=== PATIENT | male | born 1985 | race Caucasian/White ===

== ENCOUNTER 2016-10-07 20:03 | Observation (INO) | payer OTHER ==
[2016-10-07] MEDS ORDERED: HYDROmorphone 1 MG/ML 1 ML SYRINGE IVP STA (20:49)
[2016-10-07] MEDS ORDERED: ACETAMINOPHEN IV (For NPO) 1,000 MG in EMPTY BAG 1 BAG IVPB STA (20:49)
--- NOTE | 2016-10-07 20:49 | ED ---
Abdominal Pain HPI - General Source: patient, RN notes reviewed Mode of arrival: ambulatory Limitations: no limitations <Kiana Delacruz - Last Filed: 10/07/16 22:48> <Too Woodard - Last Filed: 10/07/16 22:50> - General Chief Complaint: Abdominal Pain Stated Complaint: fever abd pain Time Seen by Provider: 10/07/16 20:24 - History of Present Illness Initial Comments: Patient is a 31-year-old male presents emergency room for evaluation of fever and abdominal pain. Patient states had fever on and off throughout the week. Patient also states began having a sore throat. Patient states influenza is been going around his house. Patient states he has not been able to get into his primary care provider to be tested for influenza and strep throat. Patient states today after eating lunch she noticed pain in his right lower quadrant. Patient states pain has been getting more intense. Patient states he still continuing to have a fever. Patient states he nauseous but denies any vomiting. Patient also states she had a vassectomy done about a month ago. Patient has pain or burning during urination, trouble urinating or blood in urine. Patient denies headache or dizziness. Patient has ear pain. Patient is chest pain or cough. Patient denies constipation or diarrhea. Patient denies any history of abdominal surgeries. (Kiana Delacruz) - Related Data Home Medications Medication Instructions Recorded Confirmed Acetaminophen Tab [Tylenol Tab] 325 mg PO Q6H PRN 10/07/16 10/07/16 Multivitamins, Thera [Multivitamin 1 tab PO DAILY 10/07/16 10/07/16 (formulary)] Allergies Allergy/AdvReac Type Severity Reaction Status Date / Time No Known Allergies Allergy Verified 10/07/16 20:50 Review of Systems ROS Other: All systems not noted in ROS Statement are negative. <Kiana Delacruz - Last Filed: 10/07/16 22:48> ROS Other: All systems not noted in ROS Statement are negative. <Too Woodard - Last Filed: 10/07/16 22:50> ROS Statement: Those systems with pertinent positive or pertinent negative responses have been documented in the HPI. Past Medical History Past Medical History: No Reported History History of Any Multi-Drug Resistant Organisms: None Reported Additional Past Surgical History / Comment(s): Vasectomy 08/2016 Past Psychological History: No Psychological Hx Reported Smoking Status: Never smoker Past Alcohol Use History: None Reported Past Drug Use History: None Reported <Kiana Delacruz - Last Filed: 10/07/16 22:48> General Exam Limitations: no limitations General appearance: alert, in no apparent distress Head exam: Present: atraumatic, normocephalic, normal inspection Eye exam: Present: normal appearance ENT exam: Present: TM's normal bilaterally Expanded Throat exam: tonsillar erythema Neck exam: Present: normal inspection Respiratory exam: Present: normal lung sounds bilaterally. Absent: respiratory distress Cardiovascular Exam: Present: regular rate, normal rhythm, normal heart sounds GI/Abdominal exam: Present: soft, tenderness (Right lower quadrant), guarding ( Voluntary guarding on palpating of her right lower quadrant), normal bowel sounds. Absent: distended, rebound, rigid Extremities exam: Present: normal inspection Back exam: Present: normal inspection Neurological exam: Present: alert, oriented X3, CN II-XII intact, normal gait Psychiatric exam: Present: normal affect, normal mood Skin exam: Present: warm, dry, intact, normal color. Absent: rash <Kiana Delacruz - Last Filed: 10/07/16 22:48> General appearance: alert, in no apparent distress Head exam: Present: atraumatic, normocephalic, normal inspection Eye exam: Present: normal appearance, PERRL, EOMI. Absent: scleral icterus, conjunctival injection, periorbital swelling ENT exam: Present: normal exam, mucous membranes moist Neck exam: Present: normal inspection. Absent: tenderness, meningismus, lymphadenopathy Respiratory exam: Present: normal lung sounds bilaterally. Absent: respiratory distress, wheezes, rales, rhonchi, stridor Cardiovascular Exam: Present: regular rate, normal rhythm, normal heart sounds. Absent: systolic murmur, diastolic murmur, rubs, gallop, clicks GI/Abdominal exam: Present: soft, tenderness (Right lower quadrant tenderness), guarding, normal bowel sounds. Absent: distended, rebound, rigid Extremities exam: Present: normal inspection, full ROM, normal capillary refill. Absent: tenderness, pedal edema, joint swelling, calf tenderness Back exam: Present: normal inspection Neurological exam: Present: alert, oriented X3, CN II-XII intact Psychiatric exam: Present: normal affect, normal mood Skin exam: Present: warm, dry, intact, normal color. Absent: rash <Too Woodard - Last Filed: 10/07/16 22:50> - General Exam Comments Initial Comments: Laying in exam room, no distress. (Kiana Delacruz) Course <Kiana Delacruz - Last Filed: 10/07/16 22:48> <Too Woodard - Last Filed: 10/07/16 22:50> Vital Signs 10/07/16 20:19 Temperature 101.9 F H Pulse Rate 101 H Respiratory 18 Rate Blood Pressure 148/89 O2 Sat by Pulse 97 Oximetry - Reevaluation(s) Reevaluation #1: 10/07/16 22:[address] Monroy, will admit patient for surgery in the morning (Too Woodard) Medical Decision Making - Lab Data Result diagrams: 10/07/16 20:45 10/07/16 20:45 <Kiana Delacruz - Last Filed: 10/07/16 22:48> - Lab Data Result diagrams: 10/07/16 20:45 10/07/16 20:45 <Too Woodard - Last Filed: 10/07/16 22:50> - Medical Decision Making There is even on the ER positive sinusitis, CT positive positive fever, patient will be admitted for IV antibiotics and nothing by mouth (Too Woodard) - Lab Data Lab Results 10/07/16 10/07/16 10/07/16 Range/Units 20:45 20:45 20:45 WBC 9.1 (3.8-10.6) k/uL RBC 4.71 (4.30-5.90) m/uL Hgb 14.3 (13.0-17.5) gm/dL Hct 40.6 (39.0-53.0) % MCV 86.3 (80.0-100.0) fL MCH 30.4 (25.0-35.0) pg MCHC 35.2 (31.0-37.0) g/dL RDW 12.2 (11.5-15.5) % Plt Count 224 (150-450) k/uL Neutrophils % 85 % Lymphocytes % 8 % Monocytes % 5 % Eosinophils % 0 % Basophils % 0 % Neutrophils # 7.7 (1.3-7.7) k/uL Lymphocytes # 0.7 L (1.0-4.8) k/uL Monocytes # 0.5 (0-1.0) k/uL Eosinophils # 0.0 (0-0.7) k/uL Basophils # 0.0 (0-0.2) k/uL PT (9.0-12.0) sec INR (<1.1) APTT (22.0-30.0) sec Sodium 138 (137-145) mmol/L Potassium 4.3 (3.5-5.1) mmol/L Chloride 102 (98-107) mmol/L Carbon Dioxide 22 (22-30) mmol/L Anion Gap 14 mmol/L BUN 12 (9-20) mg/dL Creatinine 1.00 (0.66-1.25) mg/dL Est GFR (MDRD) Af Amer >60 (>60 ml/min/1.73 sqM) Est GFR (MDRD) Non-Af >60 (>60 ml/min/1.73 sqM) Glucose 112 H (74-99) mg/dL Plasma Lactic Acid Miguel (0.7-2.0) mmol/L Calcium 9.2 (8.4-10.2) mg/dL Total Bilirubin 0.9 (0.2-1.3) mg/dL AST 29 (17-59) U/L ALT 39 (21-72) U/L Alkaline Phosphatase 62 (38-126) U/L Total Protein 8.0 (6.3-8.2) g/dL Albumin 4.7 (3.5-5.0) g/dL Influenza Type A RNA Not Detected (Not Detectd) Influenza Type B (PCR) Not Detected (Not Detectd) Group A Strep Rapid (Negative) 10/07/16 10/07/16 10/07/16 Range/Units 20:45 20:45 20:45 WBC (3.8-10.6) k/uL RBC (4.30-5.90) m/uL Hgb (13.0-17.5) gm/dL Hct (39.0-53.0) % MCV (80.0-100.0) fL MCH (25.0-35.0) pg MCHC (31.0-37.0) g/dL RDW (11.5-15.5) % Plt Count (150-450) k/uL Neutrophils % % Lymphocytes % % Monocytes % % Eosinophils % % Basophils % % Neutrophils # (1.3-7.7) k/uL Lymphocytes # (1.0-4.8) k/uL Monocytes # (0-1.0) k/uL Eosinophils # (0-0.7) k/uL Basophils # (0-0.2) k/uL PT 10.5 (9.0-12.0) sec INR 1.0 (<1.1) APTT 27.5 (22.0-30.0) sec Sodium (137-145) mmol/L Potassium (3.5-5.1) mmol/L Chloride (98-107) mmol/L Carbon Dioxide (22-30) mmol/L Anion Gap mmol/L BUN (9-20) mg/dL Creatinine (0.66-1.25) mg/dL Est GFR (MDRD) Af Amer (>60 ml/min/1.73 sqM) Est GFR (MDRD) Non-Af (>60 ml/min/1.73 sqM) Glucose (74-99) mg/dL Plasma Lactic Acid Miguel 0.9 (0.7-2.0) mmol/L Calcium (8.4-10.2) mg/dL Total Bilirubin (0.2-1.3) mg/dL AST (17-59) U/L ALT (21-72) U/L Alkaline Phosphatase (38-126) U/L Total Protein (6.3-8.2) g/dL Albumin (3.5-5.0) g/dL Influenza Type A RNA (Not Detectd) Influenza Type B (PCR) (Not Detectd) Group A Strep Rapid Negative (Negative) Disposition Decision Date: 10/07/16 <Kiana Delacruz - Last Filed: 10/07/16 22:48> <Too Woodard - Last Filed: 10/07/16 22:50> Clinical Impression: Appendicitis Disposition: ADMITTED IP TO THIS HOSP Condition: Stable Referrals: None,Stated [Primary Care Provider] - 1-2 days
[2016-10-07] MEDS ORDERED: RX INFO: IV CONTRAST WAS GIVEN 1 EACH MISC MISCELLANE PRN (20:50)
[2016-10-07] MEDS: SODIUM CHLORIDE 0.9% 500 ML IV SCH (20:58)
[2016-10-07 21:31] LABS: Partial Thromboplastin Time 27.5 sec (22.0-30.0); Prothrombin Time 10.5 sec (9.0-12.0)
[2016-10-07 21:35] LABS: ALT 39 U/L (21-72); AST 29 U/L (17-59); Alkaline Phosphatase 62 U/L (38-126); Anion Gap 14 mmol/L; Blood Urea Nitrogen 12 mg/dL (9-20); Calcium 9.2 mg/dL (8.4-10.2); Carbon Dioxide 22 mmol/L (22-30); Chloride 102 mmol/L (98-107); Glucose 112 mg/dL (74-99); Non-African American GFR(MDRD) >60 (>60 ml/min/1.73 sqM); Potassium 4.3 mmol/L (3.5-5.1); Sodium 138 mmol/L (137-145); Total Bilirubin 0.9 mg/dL (0.2-1.3)
[2016-10-07 22:17] LABS: Basophils % (A) 0 %; CH 31.2; CHCM 36.2; Eosinophils % (A) 0 %; HCT 40.6 % (39.0-53.0); HDW 3.02; HGB 14.3 gm/dL (13.0-17.5); Luc # (Auto) 0.14; Luc % (Auto) 2; Lymphocytes # (A) 0.7 k/uL (1.0-4.8); Lymphocytes % (A) 8 %; MCH 30.4 pg (25.0-35.0); MCHC 35.2 g/dL (31.0-37.0); MCV 86.3 fL (80.0-100.0); Mean Platelet Volume 7.5; Monocytes # (A) 0.5 k/uL (0-1.0); Monocytes % (A) 5 %; Neutrophils # (A) 7.7 k/uL (1.3-7.7); Neutrophils % (A) 85 %; RBC 4.71 m/uL (4.30-5.90); RDW 12.2 % (11.5-15.5); WBC 9.1 k/uL (3.8-10.6); WBC (Perox) 8.88
--- NOTE | 2016-10-07 22:38 | CT ---
EXAMINATION TYPE: CT abdomen pelvis w con DATE OF EXAM: 10/07/2016 10:23 PM COMPARISON: NONE HISTORY: Pain above umbilicus and fever. CT DLP: 1872.90 mGycm Automated exposure control for dose reduction was used. TECHNIQUE: Helical acquisition of images was performed from the lung bases through the pelvis. CONTRAST: Performed without Oral Contrast and with IV Contrast, patient injected with 100 mL of Omnipaque 300. FINDINGS: There is mild atelectasis at the lung bases. There is no pleural effusion. The liver spleen pancreas gallbladder appear normal. Bile ducts are not dilated. There is no adrenal mass. Kidneys show satisfactory contrast opacification. There is no hydronephrosis. There is no retro peritoneal adenopathy. There is no ascites. The appendix appears slightly thickened. There is probabl y an appendicolith. Appendix measures 12 mm. Bladder distends smoothly. There is no pelvic mass. I see no intestinal wall thickening.. IMPRESSION: THERE IS PATCHY ATELECTASIS AT THE LUNG BASES. THERE IS THICKENED APPENDIX WITH APPENDICOLITH CONSISTENT WITH ACUTE APPENDICITIS.
[2016-10-07] MEDS ORDERED: ONDANSETRON 4 MG/2 ML VIAL IVP PRN (22:48)
[2016-10-07] MEDS ORDERED: HYDROmorphone 1 MG/ML 1 ML SYRINGE IV PRN (22:48)
[2016-10-07] MEDS ORDERED: NALOXONE 0.4 MG/ML 1 ML VIAL IV PRN (22:48)
[2016-10-07] MEDS ORDERED: AMPICILLIN-SULBACTAM 3 GM in SODIUM CHLORIDE 0.9% 100 ML IVPB STA (22:51)
[2016-10-07] MEDS: HYDROmorphone 1 MG/ML 1 ML SYRINGE IV PRN (23:21)
[2016-10-08 00:05] VITALS: BMI 32.5
[2016-10-08] MEDS: SODIUM CHLORIDE 0.9% 500 ML IV SCH ×2 (00:17→01:17)
[2016-10-08] MEDS: SODIUM CHLORIDE 0.9% 1,000 ML IV SCH ×2 (02:02→16:07)
[2016-10-08] MEDS: HYDROmorphone 1 MG/ML 1 ML SYRINGE IV PRN ×2 (02:20→07:16)
[2016-10-08 07:53] LABS: Basophils % (A) 0 %; CH 30.9; Eosinophils % (A) 0 %; HCT 38.4 % (39.0-53.0); HDW 2.85; HGB 12.9 gm/dL (13.0-17.5); Luc # (Auto) 0.13; Luc % (Auto) 2; Lymphocytes # (A) 1.1 k/uL (1.0-4.8); Lymphocytes % (A) 13 %; MCH 29.7 pg (25.0-35.0); MCHC 33.6 g/dL (31.0-37.0); MCV 88.6 fL (80.0-100.0); Mean Platelet Volume 7.3; Monocytes # (A) 0.5 k/uL (0-1.0); Monocytes % (A) 6 %; Neutrophils # (A) 6.2 k/uL (1.3-7.7); Neutrophils % (A) 79 %; RBC 4.33 m/uL (4.30-5.90); RDW 12.3 % (11.5-15.5); WBC 7.9 k/uL (3.8-10.6); WBC (Perox) 8.38
[2016-10-08 08:13] LABS: ALT 30 U/L (21-72); AST 21 U/L (17-59); Alkaline Phosphatase 53 U/L (38-126); Anion Gap 9 mmol/L; Blood Urea Nitrogen 9 mg/dL (9-20); Calcium 8.7 mg/dL (8.4-10.2); Carbon Dioxide 23 mmol/L (22-30); Chloride 101 mmol/L (98-107); Glucose 105 mg/dL (74-99); Non-African American GFR(MDRD) >60 (>60 ml/min/1.73 sqM); Potassium 3.8 mmol/L (3.5-5.1); Sodium 133 mmol/L (137-145); Total Protein 7.2 g/dL (6.3-8.2)
[2016-10-08] MEDS ORDERED: IV FLUID CONTINUATION 1,000 ML IV ONE (08:41)
--- NOTE | 2016-10-08 08:51 | P.GSHP ---
History of Present Illness H&P Date: 10/08/16 Chief Complaint: Acute appendicitis Patient here today with complaints of right lower quadrant pain. Pain began yesterday. He began experiencing fevers earlier this week. His family was dealing with a viral infection. His fluid test was normal. His white blood cell count is normal. He had a fever as high as 102 in the hospital. Pain persisted this morning. CAT scan shows acute appendicitis. No history of similar events in the past. No prior abdominal surgeries. The patient is a Judaism. He was nauseous yesterday but no vomiting. - Review of Systems Comment: The patient denies any acute changes in his vision or hearing, no dysphagia or odynophagia, no chest pain or shortness of breath, no dysuria or hematuria, no headache, no runny nose, no rectal bleeding or melena, no unexplained weight loss Past Medical History Past Medical History: No Reported History History of Any Multi-Drug Resistant Organisms: None Reported Additional Past Surgical History / Comment(s): Vasectomy 08/2016 Additional Past Anesthesia/Blood Transfusion Reaction / Comment(s): no blood products per synagogue. Past Psychological History: No Psychological Hx Reported Smoking Status: Never smoker Past Alcohol Use History: None Reported Past Drug Use History: None Reported - Past Family History Mother Family Medical History: Cancer, Diabetes Mellitus Medications and Allergies Home Medications Medication Instructions Recorded Confirmed Type Acetaminophen Tab [Tylenol Tab] 325 mg PO Q6H PRN 10/07/16 10/07/16 History Multivitamins, Thera [Multivitamin 1 tab PO DAILY 10/07/16 10/07/16 History (formulary)] Allergies Allergy/AdvReac Type Severity Reaction Status Date / Time No Known Allergies Allergy Verified 10/08/16 04:27 Surgical - Exam Vital Signs Temp Pulse Resp BP Pulse Ox 101.9 F H 101 H 18 148/89 97 10/07/16 20:19 10/07/16 20:19 10/07/16 20:19 10/07/16 20:19 10/07/16 20:19 Physical exam: General: Well-developed, well-nourished HEENT: Normocephalic, sclerae nonicteric Abdomen: Moderate right lower quadrant tenderness, nondistended Extremities: No edema Neuro: Alert and oriented Results - Labs 10/08/16 06:45 10/08/16 06:45 Abnormal Lab Results - Last 24 Hours (Table) 10/08/16 10/08/16 Range/Units 06:45 06:45 Hgb 12.9 L (13.0-17.5) gm/dL Hct 38.4 L (39.0-53.0) % Sodium 133 L (137-145) mmol/L Glucose 105 H (74-99) mg/dL Diabetes panel 10/08/16 Range/Units 06:45 Sodium 133 L (137-145) mmol/L Potassium 3.8 (3.5-5.1) mmol/L Chloride 101 (98-107) mmol/L Carbon Dioxide 23 (22-30) mmol/L BUN 9 (9-20) mg/dL Creatinine 0.78 (0.66-1.25) mg/dL Glucose 105 H (74-99) mg/dL Calcium 8.7 (8.4-10.2) mg/dL AST 21 (17-59) U/L ALT 30 (21-72) U/L Alkaline Phosphatase 53 (38-126) U/L Total Protein 7.2 (6.3-8.2) g/dL Albumin 4.0 (3.5-5.0) g/dL Calcium panel 10/08/16 Range/Units 06:45 Calcium 8.7 (8.4-10.2) mg/dL Albumin 4.0 (3.5-5.0) g/dL Pituitary panel 10/08/16 Range/Units 06:45 Sodium 133 L (137-145) mmol/L Potassium 3.8 (3.5-5.1) mmol/L Chloride 101 (98-107) mmol/L Carbon Dioxide 23 (22-30) mmol/L BUN 9 (9-20) mg/dL Creatinine 0.78 (0.66-1.25) mg/dL Glucose 105 H (74-99) mg/dL Calcium 8.7 (8.4-10.2) mg/dL Adrenal panel 10/08/16 Range/Units 06:45 Sodium 133 L (137-145) mmol/L Potassium 3.8 (3.5-5.1) mmol/L Chloride 101 (98-107) mmol/L Carbon Dioxide 23 (22-30) mmol/L BUN 9 (9-20) mg/dL Creatinine 0.78 (0.66-1.25) mg/dL Glucose 105 H (74-99) mg/dL Calcium 8.7 (8.4-10.2) mg/dL Total Bilirubin 1.0 (0.2-1.3) mg/dL AST 21 (17-59) U/L ALT 30 (21-72) U/L Alkaline Phosphatase 53 (38-126) U/L Total Protein 7.2 (6.3-8.2) g/dL Albumin 4.0 (3.5-5.0) g/dL Assessment and Plan (1) Appendicitis Narrative/Plan: Will proceed with laparoscopic appendectomy, possible open appendectomy. The risks of bleeding, infection, abscess, dehiscence, hernia, ileus were all discussed. The patient understands and wishes to proceed. Status: Acute
[2016-10-08 08:55] VITALS: RESP 16
[2016-10-08] MEDS ORDERED: HEPARIN SODIUM,PORCINE 5,000 UNIT/ML 1 ML VIAL SQ ONE (08:59)
[2016-10-08] MEDS ORDERED: ONDANSETRON 4 MG/2 ML VIAL ONE (09:02)
[2016-10-08] MEDS ORDERED: GLYCOPYRROLATE 0.2 MG/ML 2 ML VIAL ONE (09:02)
[2016-10-08] MEDS ORDERED: VECURONIUM 10 MG VIAL IV ONE (09:02)
[2016-10-08] MEDS ORDERED: SUCCINYLCHOLINE CHLORIDE 100 MG/5 ML SYR IV ONE (09:02)
[2016-10-08] MEDS ORDERED: LIDOCAINE 1% INJ 10MG/ML (20 ML MDV) ONE (09:02)
[2016-10-08] MEDS ORDERED: MIDAZOLAM 2 MG/2 ML VIAL ONE (09:02)
[2016-10-08] MEDS ORDERED: NEOSTIGMINE 1 MG/ML 10 ML VIAL ONE (09:02)
[2016-10-08] MEDS ORDERED: fentaNYL (PF) 50 MCG/ML 2 ML AMP ONE (09:02)
[2016-10-08] MEDS ORDERED: DEXAMETHASONE SOD PHOS (MDV) 100 MG/10 ML VIAL ONE (09:02)
[2016-10-08] MEDS ORDERED: PROPOFOL 10 MG/ML 20 ML VIAL IV ONE (09:02)
[2016-10-08] MEDS: PIPERACILLIN-TAZOBACTAM 3.375 GM in DEXTROSE/WATER 1 50ML.BAG IVPB SCH ×2 (09:11→16:11)
[2016-10-08] MEDS ORDERED: BUPIVACAIN-EPI 0.25%-1:200,000 30 ML VIAL SQ ONE ×2 (09:26)
[2016-10-08] MEDS ORDERED: LACTATED RINGERS 1,000 ML IV ONE (09:36)
--- NOTE | 2016-10-08 10:07 | P.PCN ---
Date of Procedure: 10/08/16 Procedure(s) Performed: PREOPERATIVE DIAGNOSIS: Acute appendicitis POSTOPERATIVE DIAGNOSIS: Same PROCEDURE: Laparoscopic appendectomy SURGEON: Noemi EBL: Total ANESTHESIA: General COMPLICATIONS: None OPERATIVE PROCEDURE: The patient was brought and placed on the operating table in the supine position. The patient was placed under general anesthesia. The abdomen was prepped and draped in the usual sterile fashion. A small vertical supraumbilical incision was made. The fascia was retracted anteriorly with Baljit forceps. The Veress needle was advanced into the peritoneal cavity. The saline drop test was normal. Insufflation took place to 15 mmHg. A 5 mm trocar was then placed. An additional 5 mm suprapubic trocar was placed under direct visualization as well as a 12 mm left lower quadrant trocar under direct visualization. The appendix was inspected. It was acutely inflamed and gangrenous in appearance. There was no evidence of rupture. The mesoappendix was dissected. The base of the appendix was divided using a linear blue load 45 mm intestinal stapler. The mesentery itself was divided using a combination of the arias load stapler and also the 12 mm clipper. The area was then irrigated. No further purulence or bleeding was seen. The appendix was brought out of the peritoneal cavity through the left lower quadrant trocar site using an Endo Catch bag. The fascia at the 12 mm site was closed using a 0 Vicryl stitch and the Abundio Feldman technique. The skin at all 3 sites was closed using 4-0 Monocryl sutures. Steri-Strips and sterile dressings then applied. DISPOSITION: Stable to recovery room
[2016-10-08] MEDS: HYDROcodone/APAP 5-325MG 1 EACH TAB PO PRN ×3 (11:45→20:24)
[2016-10-08 15:01] VITALS: BP 145/87; PULSE 72; TEMP 98.1
[2016-10-08] MEDS ORDERED: HEPARIN SODIUM,PORCINE 5,000 UNIT/ML 1 ML VIAL SQ SCH (16:00)
== END 2016-10-08 20:50 | disposition home or self-care (01) ==
LOC: EC 20:03 → 3SUR 22:49 → INTOOBSV 22:49
PROVIDERS: ADMIT Surgery; ATTEND Surgery
DX: K35.80 Unspecified acute appendicitis (principal)
CPT/HCPCS: 44970; 96376; 96368; 96361; 96365; 96366; 96375; 99285; 36415; 93005; 88304; 80053 ×2; 83605; 85025 ×2; 85610; 85730; 87040; 87081; 87430; 87502; 74177; G0378 ×2; J2250; J1644; J2710; J2405; J2001; J3010; J1170 ×2; J2543; Q9967; J0295; J1100; J0131; J0330; J2704